=== PATIENT | female | born 1980 | race Caucasian/White ===

== ENCOUNTER 2016-08-24 11:04 | Emergency (ER) | payer OTHER | END 2016-08-24 12:55 | disposition home or self-care (01) | LOC: ER 11:04 | DX: G43.909 Migraine, unspecified, not intractable, without status migrainosus (principal); K21.9 Gastro-esophageal reflux disease without esophagitis; Z88.1 Allergy status to other antibiotic agents | CPT/HCPCS: 96374; 96375; J1100; J1885; J2765 ==